=== PATIENT | female | born 1970 | race Caucasian/White ===

== ENCOUNTER 2017-05-08 17:16 | Emergency (ER) | payer BC ==
--- NOTE | 2017-05-08 17:25 | EDPHY ---
H & P Time Seen by Provider: 05/08/17 17:24 HPI/ROS: Chief complaint. Headache HPI. Patient is a 46-year-old female with history of migraine headaches. 5 days ago she started with atypical left-sided migraine headache with visual aura. She has used her regular cocktail of Benadryl, Zofran, and [place] without relief. She has sinus infection a week ago that was taking antibiotics and her sinus symptoms are resolving. No recent fever. No head injury. No chest discomfort or trouble breathing. While nauseated there is no abdominal pain. No focal weakness or paresthesias. ROS Constitutional. no fever/chills, no weakness Eyes. no problems with vision ENT. no sore throat, no nasal drainage Cardiovascular. no chest pain Respiratory. no shortness of breath, no cough Abdominal. no abdominal pain, no nausea/vomiting, no diarrhea . no problems urinating MS. no calf pain/swelling, no neck/back pain, no joint pain Skin. no rash Lymph. no swollen glands Neuro. Headache Past Medical/Surgical History: Migraines, hysterectomy, cholecystectomy, peptic ulcer disease Social History: , nonsmoker, no alcohol Smoking Status: Former smoker Physical Exam: General Appearance: Alert well-developed female mild distress vital signs are stable Eyes: Pupils equal and round no pallor or injection. ENT, Mouth: Mucous membranes are moist. Respiratory: There are no retractions, lungs are clear to auscultation. Cardiovascular: Regular rate and rhythm. Gastrointestinal: Abdomen is soft and nontender, no masses, bowel sounds normal. Neurological: Awake and alert, sensory and motor exams grossly normal. Skin: Warm and dry, no rashes. Musculoskeletal: Neck is supple nontender. Extremities symmetrical, full range of motion. Psychiatric: Patient is oriented X 3, there is no agitation. Constitutional: Initial Vital Signs Temperature (C) 37.4 C 05/08/17 17:20 Heart Rate 85 05/08/17 17:20 Respiratory Rate 16 05/08/17 17:20 Blood Pressure 131/83 H 05/08/17 17:20 O2 Sat (%) 97 05/08/17 17:20 O2 Delivery Mode Room Air Allergies/Adverse Reactions: levofloxacin [From Levaquin] Allergy (Unknown, Verified 05/08/17 17:24) povidone-iodine [From Betadine] Allergy (Unknown, Verified 05/08/17 17:24) soap [From Betadine] Allergy (Unknown, Verified 05/08/17 17:24) Home Medications: Medication Instructions Recorded Omeprazole 01/31/14 Benadryl 05/08/17 Effexor Xr 05/08/17 [place] 7.5-325 Tablet 05/08/17 Zofran 05/08/17 Medical Decision Making Procedures: IV normal saline. Reglan, Benadryl, fentanyl, Decadron IV. Patient cannot take nonsteroidals ED Course/Re-evaluation: Recheck at 6:35 p.m.. Patient tells me that initially her headache was better but now it is about the same again. Unfortunately patient is not able to use Toradol as she has peptic ulcer disease. We have used Reglan though because of her concomitant use of FX or we can't use any further Reglan. She will be given Ativan 1 mg and 12.5 mg of Benadryl further as well as Dilaudid 0.5 mg Re-evaluation at 7:15 p.m. And patient is stable. Her headache has now resolved completely. She is neurologically intact. Conversational. She will feels well to be discharged. Differential Diagnosis: Typical migraine headache. I considered intracranial bleeding, CVA, infection. - Data Points Medications Given: Hydromorphone HCl (Dilaudid) 0.5 mg IVP Q2HRS PRN PRN Reason: Pain, Severe Unable to Take PO Last Admin: 05/08/17 19:08 Dose: 0.5 mg Discontinued Medications Dexamethasone (Decadron Injection) 10 mg IVP EDNOW ONE Stop: 05/08/17 17:42 Last Admin: 05/08/17 17:57 Dose: 10 mg Diphenhydramine HCl (Benadryl Injection) 12.5 mg IVP EDNOW ONE Stop: 05/08/17 17:42 Last Admin: 05/08/17 17:59 Dose: 12.5 mg Diphenhydramine HCl (Benadryl Injection) 12.5 mg IVP EDNOW ONE Stop: 05/08/17 18:40 Last Admin: 05/08/17 19:09 Dose: 12.5 mg Fentanyl (Sublimaze) 100 mcg IVP EDNOW ONE Stop: 05/08/17 17:43 Last Admin: 05/08/17 18:00 Dose: 100 mcg Sodium Chloride (Ns) 1,000 mls @ 0 mls/hr IV ONCE ONE; Wide Open PRN Reason: Protocol Stop: 05/08/17 17:42 Last Admin: 05/08/17 17:46 Dose: 1,000 mls Sodium Chloride (Ns) 1,000 mls @ 0 mls/hr IV ONCE ONE PRN Reason: Wide Open Stop: 05/08/17 18:45 Last Admin: 05/08/17 18:50 Dose: 1,000 mls Lorazepam (Ativan Injection) 1 mg IVP EDNOW ONE Stop: 05/08/17 18:41 Last Admin: 05/08/17 19:06 Dose: 1 mg Metoclopramide HCl (Reglan Injection) 10 mg IVP EDNOW ONE Stop: 05/08/17 17:42 Last Admin: 05/08/17 17:58 Dose: 10 mg Departure - Departure Disposition: Home, Routine, Self-Care Clinical Impression: Migraine headache Qualifiers: Migraine type: with aura Status migrainosus presence: with status migrainosus Intractability: not intractable Qualified Code(s): G43.101 - Migraine with aura , not intractable, with status migrainosus Condition: Good Instructions: Migraine Headache (ED) Additional Instructions: Continue regular medications. Return for worsening symptoms. Recheck in 1-2 days for continuing symptoms Referrals: Rosy Poe MD [Primary Care Provider] - 1 day, if not improved
[2017-05-08] MEDS ORDERED: DEXAMETHASONE 10 MG/ML VIAL IVP ONE (17:41)
[2017-05-08] MEDS ORDERED: NS 1,000 ML IV ONE ×2 (17:41→18:44)
[2017-05-08] MEDS ORDERED: METOCLOPRAMIDE 10 MG/2 ML VIAL IVP ONE (17:41)
[2017-05-08] MEDS ORDERED: fentaNYL 100 MCG/2 ML INJ IVP ONE (17:42)
[2017-05-08] MEDS ORDERED: HYDROmorphONE/DILAUDID 1 MG/ML INJ IVP PRN (18:39)
[2017-05-08] MEDS ORDERED: LORazepam 2 MG/ML INJ IVP ONE (18:40)
[2017-05-08 18:47] VITALS: O2SAT 96
[2017-05-08 19:32] VITALS: BP 97/66; PULSE 76; RESP 16; TEMP 98.1
== END 2017-05-08 19:32 | disposition home or self-care (01) ==
LOC: CED 17:16
DX: G43.101 Migraine with aura, not intractable, with status migrainosus (principal); E86.9 Volume depletion, unspecified; Z87.891 Personal history of nicotine dependence
CPT/HCPCS: 96374; J1100; J1170; J1200; J2060; J2765; J3010

== ENCOUNTER → 2017-07-01 | Outpatient (CLI) | payer BC | LOC: CIMAGING 12:40 | PROVIDERS: ATTEND Family Medicine | DX: R91.8 Other nonspecific abnormal finding of lung field (principal) | CPT/HCPCS: 71046-PO ==

== ENCOUNTER → 2017-07-23 | Outpatient (CLI) | payer BC | LOC: CIMAGING 14:13 | PROVIDERS: ATTEND Family Medicine | DX: Z13.83 Encounter for screening for respiratory disorder NEC (principal); G43.909 Migraine, unspecified, not intractable, without status migrainosus | CPT/HCPCS: 71046-PO ==

== ENCOUNTER → 2018-02-27 | Outpatient (CLI) | payer BC | LOC: FIMAGING 10:47 | PROVIDERS: ATTEND Surgery | DX: R10.9 Unspecified abdominal pain (principal) ==